=== PATIENT | female | born 1995 | race Caucasian/White ===

== ENCOUNTER 2017-07-23 08:50 | Emergency (ER) | payer SELFPAY ==
[~2017-07-23] VITALS: Ht 162.6 cm; Wt 140.0 kg
[2017-07-23 08:53] VITALS: BP 134/87; PULSE 85; RESP 14; TEMP 97.5; O2SAT 99
[2017-07-23] MEDS ORDERED: LAMO150 PO (09:21)
[2017-07-23] MEDS ORDERED: CELE20TA PO (09:21)
[2017-07-23] MEDS ORDERED: SODIUM CHLOR 0.9% 1000 ML INJ 1,000 ML IV ONE (09:36)
--- NOTE | 2017-07-23 09:36 | PD ---
HPI Chief Complaint: Medical Clearance Time Seen by Provider: 09:28 Travel History International Travel<30 days: No Contact w/Intl Traveler<30days: No Traveled to known affect area: No History of Present Illness HPI 21-year-old female visiting from [place], presents emergency department with 3 day history of multiple complaints including fatigue, increased need for sleep, sore throat, headache, visual changes including floaters, bilateral hand numbness and weakness which is intermittent, and back pain. She also has urinary frequency but denies dysuria or vaginal discharge. No nausea or vomiting. No diarrhea. No previous history of diabetes, thyroid problems or reports of significant fever or chills. Patient states pain at most generally is 6 out of 10. She states she just had a 3 day trip down from [place]. She is here visiting. She works for [employer] in [place]. She denies previous symptoms. Patient is allergic to sulfa. PFSH Past Medical History Anxiety: Yes Influenza Vaccination: Yes ?: Not LMP: 06/30/17 Past Surgical History Section: Yes Social History Alcohol Use: No Tobacco Use: No Substance Use: No Allergies-Medications (Allergen,Severity, Reaction): Coded Allergies: Sulfa (Sulfonamide Antibiotics) (Verified Allergy, Unknown, 07/23/17) Reported Meds & Prescriptions Reported Meds & Active Scripts Active Reported Lamictal (Lamotrigine) 150 Mg Tab 150 Mg PO BID Celexa (Citalopram Hydrobromide) 20 Mg Tab 20 Mg PO DAILY Review of Systems Except as stated in HPI: all other systems reviewed are Neg General / Constitutional: Positive: Fever, No: Chills Eyes: Positive: Blurred Vision, Other (Floaters), No: Diploplia, Photophobia, Drainage, Redness, Foreign Body Sensation, Pain, Tearing, Blind Spots, Visual changes, Blindness HENT: Positive: Sore Throat, Rhinitis, Rhinorrhea, Congestion, Earache, No: Headaches, Vertigo, Lightheadedness, Nosebleed, Neck Stiffness, Neck Pain, Masses, Gingival Bleeding, Dental Difficulties, Ear Discharge Cardiovascular: No: Chest Pain or Discomfort, Palpitations, Irregular Rhythm, Tachycardia, Diaphoresis Respiratory: No: Cough, Shortness of Breath, Wheezing Gastrointestinal: No: Nausea, Vomiting, Diarrhea, Abdominal Pain Genitourinary: Positive: Frequency, No: Urgency, Dysuria, Pelvic Pain, Flank Pain, Discharge, Vaginal Bleeding Musculoskeletal: Positive: Myalgias, No: Arthralgias, Limited ROM, Pain Skin: No Rash Neurologic: No: Weakness Psychiatric: No: Depression Endocrine: No: Polydipsia Hematologic/Lymphatic: No: Easy Bruising Physical Exam Narrative GENERAL: Moderately obese female in no obvious distress. SKIN: Warm and dry. Normal color. Normal turgor. HEAD: Atraumatic. Normocephalic. Patient complains of sinus tenderness with palpation bilaterally. EYES: Pupils equal and round. No scleral icterus. No injection or drainage. Ophthalmic exam is unremarkable. Visual arellano are full by confrontation. ENT: No nasal bleeding with mild white nasal discharge. Mucous membranes pink and moist. TMs are dull with mild injection bilaterally. Pharynx appears mildly swollen with mild erythema but no significant exudate or postnasal drip noted. NECK: Trachea midline. Supple and nontender without significant lymphadenopathy. CARDIOVASCULAR: Regular rate and rhythm. RESPIRATORY: No accessory muscle use. Clear to auscultation. Breath sounds equal bilaterally. GASTROINTESTINAL: Abdomen soft, non-tender, nondistended. Hepatic and splenic margins not palpable. MUSCULOSKELETAL: Extremities without clubbing, cyanosis, or edema. No obvious deformities. Patient has normal senior sales associate strength bilaterally. There is negative Tinel sign bilaterally. There is no significant weakness noted in the upper or lower extremities. Patient complains of soft tissue tenderness along both lower lumbar regions without CVA tenderness. NEUROLOGICAL: Awake and alert. No obvious cranial nerve deficits. Motor grossly within normal limits. Five out of 5 muscle strength in the arms and legs. Normal speech. PSYCHIATRIC: Appropriate mood and affect; insight and judgment normal. Data Data Last Documented VS Vital Signs Date Time Temp Pulse Resp B/P (MAP) Pulse Ox O2 Delivery O2 Flow Rate FiO2 07/23/17 10:04 Room Air 07/23/17 08:53 97.5 85 14 99 Orders Orders Electrocardiogram (07/23/17 09:36) Ed Urine Pregnancytest Poc (07/23/17 09:36) Complete Blood Count With Diff (07/23/17 09:36) Comprehensive Metabolic Panel (07/23/17 09:36) Act Partial Throm Time (Ptt) (07/23/17 09:36) Prothrombin Time / Inr (Pt) (07/23/17 09:36) Urinalysis - C+S If Indicated (07/23/17 09:36) Ecg Monitoring (07/23/17 09:36) Iv Access Insert/Monitor (07/23/17:36) Oximetry (07/23/17:36) Sodium Chloride 0.9% Flush (Ns Flush) (07/23/17 09:45) Sodium Chlor 0.9% 1000 Ml Inj (Ns 1000 M (07/23/17 09:36) Monoscreen (07/23/17:36) Group A Rapid Strep Screen (07/23/17 09:36) Thyroid Stimulating Hormone (07/23/17 09:36) Strep Culture (Group A) (07/23/17 09:50) Urine Culture (07/23/17 09:50) Labs Laboratory Tests Test 07/23/17 09:50 White Blood Count 7.6 TH/MM3 Red Blood Count 4.96 MIL/MM3 Hemoglobin 13.6 GM/DL Hematocrit 40.3 % Mean Corpuscular Volume 81.2 FL Mean Corpuscular Hemoglobin 27.4 PG Mean Corpuscular Hemoglobin Concent 33.8 % Red Cell Distribution Width 13.9 % Platelet Count 295 TH/MM3 Mean Platelet Volume 8.3 FL Neutrophils (%) (Auto) 67.1 % Lymphocytes (%) (Auto) 25.0 % Monocytes (%) (Auto) 5.3 % Eosinophils (%) (Auto) 2.2 % Basophils (%) (Auto) 0.4 % Neutrophils # (Auto) 5.1 TH/MM3 Lymphocytes # (Auto) 1.9 TH/MM3 Monocytes # (Auto) 0.4 TH/MM3 Eosinophils # (Auto) 0.2 TH/MM3 Basophils # (Auto) 0.0 TH/MM3 CBC Comment DIFF FINAL Differential Comment Prothrombin Time 10.9 SEC Prothromb Time International Ratio 1.1 RATIO Activated Partial Thromboplast Time 28.2 SEC Urine Color YELLOW Urine Turbidity HAZY Urine pH 6.0 Urine Specific [place] 1.029 Urine Protein TRACE mg/dL Urine Glucose (UA) NEG mg/dL Urine Ketones NEG mg/dL Urine Occult Blood NEG Urine Nitrite NEG Urine Bilirubin NEG Urine Urobilinogen LESS THAN 2.0 MG/DL Urine Leukocyte Esterase LARGE Urine RBC 2 /hpf Urine WBC 5 /hpf Urine Squamous Epithelial Cells 9 /hpf Urine Bacteria MANY /hpf Urine Mucus MANY /lpf Microscopic Urinalysis Comment CULTURE INDICATED Blood Urea Nitrogen 13 MG/DL Creatinine 0.87 MG/DL Random Glucose 86 MG/DL Total Protein 7.7 GM/DL Albumin 3.9 GM/DL Calcium Level 8.9 MG/DL Alkaline Phosphatase 89 U/L Aspartate Amino Transf (AST/SGOT) 22 U/L Alanine Aminotransferase (ALT/SGPT) 32 U/L Total Bilirubin 0.4 MG/DL Sodium Level 137 MEQ/L Potassium Level 4.1 MEQ/L Chloride Level 105 MEQ/L Carbon Dioxide Level 25.5 MEQ/L Anion Gap 7 MEQ/L Estimat Glomerular Filtration Rate 81 ML/MIN Thyroid Stimulating Hormone 3rd Gen 1.460 uIU/ML [facility] Medical Decision Making Medical Screen Exam Complete: Yes Emergency Medical Condition: Yes Differential Diagnosis Viral syndrome. Sinusitis. Strep pharyngitis. Mononucleosis. Thyroid issue. Electrolyte imbalance. Dehydration. UTI. . Narrative Course Patient is medically stable at time of exam. Labs ordered including CBC, CMP, urinalysis, urine , Monospot, rapid strep test, and TSH. IV access is obtained and the patient is given 1000 mL's normal saline bolus. EKG is obtained showing a normal sinus rhythm without ST changes. Urine test is negative. CBC is unremarkable. Coagulation studies are normal. Chemistries are unremarkable. TSH is normal at 1.46. [place] is negative. Urinalysis suggestive of urinary tract infection with large leukocyte esterase with 2 RBCs per high-power field, 5 RBCs per high-power field and many bacteria and many mucus. Urine culture is planted. Patient is given Rocephin 1 g IV. Patient will be continued on Keflex 500 mg 3 times daily 7 days. Patient should follow with her primary care physician upon returning back home to [place] as needed. Patient can return to the emergency department if symptoms worsen. Diagnosis Primary Impression: UTI (urinary tract infection) Qualified Codes: N30.00 - Acute cystitis without hematuria Additional Impressions: Sinusitis, acute Qualified Codes: J01.40 - Acute pansinusitis, unspecified Otitis media Qualified Codes: H66.003 - Acute suppurative otitis media without spontaneous rupture of ear drum, bilateral Referrals: Primary Care Physician Patient Instructions: Dysuria (ED), Ear Infection (ED), General Instructions, Sinusitis (ED) Additional Instructions: EKG is obtained showing a normal sinus rhythm without ST changes. Urine test is negative. CBC is unremarkable. Coagulation studies are normal. Chemistries are unremarkable. TSH is normal at 1.46. [place] is negative. Urinalysis suggestive of urinary tract infection with large leukocyte esterase with 2 RBCs per high-power field, 5 RBCs per high-power field and many bacteria and many mucus. Urine culture is planted. Patient is given Rocephin 1 g IV. Patient will be continued on Keflex 500 mg 3 times daily 7 days. Patient should follow with her primary care physician upon returning back home to [place] as needed. Patient can return to the emergency department if symptoms worsen. Med/Other Pt SpecificInfo: Prescription(s) given Disposition: DISCHARGE HOME Condition: Stable Johnathan Renteria Jul 23, 2017 09:35
[2017-07-23] MEDS ORDERED: SODIUM CHLORIDE 0.9% FLUSH 10 ML FLUSH IVF PRN (09:45)
[2017-07-23 10:22] LABS: AUTOMATED NEUTROPHIL # 5.1 TH/MM3 (1.8-7.7); BASOPHIL % 0.4 % (0.0-2.0); EOSINOPHIL # 0.2 TH/MM3 (0-0.4); EOSINOPHIL % 2.2 % (0.0-4.0); HEMATOCRIT 40.3 % (35.0-46.0); HEMOGLOBIN 13.6 GM/DL (11.6-15.3); LYMPHOCYTE # 1.9 TH/MM3 (1.0-4.8); MEAN CELL VOLUME 81.2 FL (80.0-100.0); MEAN CORPUSCULAR HEMOGLOBIN 27.4 PG (27.0-34.0); MEAN CORPUSCULAR HGB CONC 33.8 % (32.0-36.0); MEAN PLATELET VOLUME 8.3 FL (7.0-11.0); MONO % 5.3 % (0.0-8.0); MONOCYTE # 0.4 TH/MM3 (0-0.9); NEUT % 67.1 % (16.0-70.0); PLATELET COUNT 295 TH/MM3 (150-450); RED BLOOD COUNT 4.96 MIL/MM3 (4.00-5.30); RED CELL DISTRIBUTION WIDTH 13.9 % (11.6-17.2); WHITE BLOOD COUNT 7.6 TH/MM3 (4.0-11.0)
[2017-07-23 10:33] LABS: INTERNATIONAL NORMALIZED RATIO 1.1 RATIO; PROTHROMBIN TIME - PATIENT 10.9 SEC (9.8-11.6)
[2017-07-23 10:38] LABS: ALBUMIN 3.9 GM/DL (3.4-5.0); ALT (GPT) 32 U/L (10-53); AST (GOT) 22 U/L (15-37); BICARBONATE 25.5 MEQ/L (21.0-32.0); BLOOD UREA NITROGEN 13 MG/DL (7-18); CALCIUM 8.9 MG/DL (8.5-10.1); CHLORIDE 105 MEQ/L (98-107); CREATININE 0.87 MG/DL (0.50-1.00); GLOMERULAR FILTRATION RATE 81 ML/MIN (>89); GLUCOSE,RANDOM 86 MG/DL (74-106); SODIUM (NA) 137 MEQ/L (136-145)
[2017-07-23 10:47] LABS: ALKALINE PHOSPHATASE 89 U/L (45-117); BACTERIA, URINE MANY /hpf; BILIRUBIN, URINE NEG (NEG); BLOOD, URINE NEG (NEG); GLUCOSE,URINE NEG (NEG); KETONE, URINE NEG (NEG); MUCUS URINE MANY /lpf (OCC); NITRITE,URINE NEG (NEG); SQUAMOUS EPITHELIAL CELL URINE 9 /hpf (0-5); TOTAL BILIRUBIN ADULT 0.4 MG/DL (0.2-1.0); TOTAL PROTEIN 7.7 GM/DL (6.4-8.2); URINE COLOR YELLOW (YELLW/STRAW); URINE LEUKOCYTE ESTERASE LARGE (NEG)
[2017-07-23] MEDS ORDERED: cefTRIAXone INJ 1,000 MG in SODIUM CHLORIDE 0.9% INJ 100 ML IV ONE (11:00)
[2017-07-23] MEDS ORDERED: CEPH-460 PO (11:08)
[2017-07-23 11:12] LABS: MONOSCREEN NEG (NEG)
[2017-07-23 12:22] VITALS: BP 112/67; PULSE 79; RESP 18
--- NOTE | 2017-07-24 18:30 | EKG ---
Date Performed: 07/23/2017 Time Performed: 09:54:38 PTAGE: 21 years EKG: Sinus rhythm NORMAL ECG NO PREVIOUS TRACING DOCTOR: Nicholas Hart Interpretating Date/Time 07/24/2017 18:27:59
== END 2017-07-23 12:24 | disposition home or self-care (01) ==
LOC: NEPD 08:50
DX: N30.00 Acute cystitis without hematuria (principal); J01.40 Acute pansinusitis, unspecified; H66.003 Acute suppurative otitis media without spontaneous rupture of ear drum, bilateral; R53.1 Weakness; F41.9 Anxiety disorder, unspecified; Z88.2 Allergy status to sulfonamides
CPT/HCPCS: 80053; 81001; 84443; 84703; 85025; 85610; 85730; 86308; 87081; 87086; 87880; 93005; 96361; 96365; 99284; J0696; J7030